=== PATIENT | male | born 1970 | race Caucasian/White ===

== ENCOUNTER 2018-03-31 13:23 | Inpatient (IN) | payer OTHER ==
[2018-03-31 13:39] VITALS: BMI 29.8
--- NOTE | 2018-03-31 17:23 | HP ---
CIWA Score - Admission Criteria OASAS Guidelines: Admission for Medically Managed Detox: Requires at least one of the followin. CIWA greater than 12 2. Seizures within the past 24 hours 3. Delirium tremens within the past 24 hours 4. Hallucinations within the past 24 hours 5. Acute intervention needed for co occurring medical disorder 6. Acute intervention needed for co occurring psychiatric disorder 7. Severe withdrawal that cannot be handled at a lower level of care (continued vomiting, continued diarrhea, abnormal vital signs) requiring intravenous medication and/or fluids 8. Admission ROS S - HPI Chief Complaint: SEEKING INPATIENT PRISON SERVICES FOR CONTINUATION OF TXMENT Allergies/Adverse Reactions: Allergies Allergy/AdvReac Type Severity Reaction Status Date / Time No Known Allergies Allergy Verified 03/31/18 15:06 History of Present Illness: 47 Y.O. MALE WITH LONG HX/O OPIOID, SAMUEL, AND BENZO DEPENDENCE HER FOR REHAB. CLIENT IS KNOWN TO THIS PROGRAM. LAST HERE 10/2017. HE IS REFERRED TODAY BY [facility] AFTER COMPLETING DETOX FOR BENZO DEPENDENCE. DENIES ANY SIGNIFICANT CLEAN TIME IN THE PAST YEAR. HE IS CURRENTLY ON MMTP 100 MG DAILY. LDM TODAY WHILE AT [facility]. HIS HOME PROGRAM IS [facility]. ALL VERIFIED BY MAZIN LASSITER. DENIES HX/O SEIZURES, SI/ HI, BLACKOUTS. DOES REPORT PAST HX/O AVH BUT PRESENTLY DENIES. HE IS CURRENLTY HOMELESS. PMHX- HIV PSYCH- INSOMNIA, DEPRESSION Exam Limitations: Language Barrier ([place] SPEAKING BUT CAN MAKE NEEDS KNOWN IN [facility].) - Ebola screening Have you traveled outside of the country in the last 21 days: No Have you had contact with anyone from an Ebola affected area: No Have you been sick,other than usual withdrawal symptoms: No Do you have a fever: No - Review of Systems Constitutional: No Symptoms Reported EENT: reports: No Symptoms Reported Respiratory: reports: No Symptoms reported Cardiac: reports: No Symptoms Reported GI: reports: No Symptoms Reported : reports: No Symptoms Reported Musculoskeletal: reports: No Symptoms Reported Integumentary: reports: No Symptoms Reported Neuro: reports: No Symptoms reported Endocrine: reports: No Symptoms Reported Hematology: reports: No Symptoms Reported Psychiatric: reports: Depressed Other Systems: Reviewed and Negative Patient History - Patient Medical History Hx Anemia: No Hx Asthma: No Hx Chronic Obstructive Pulmonary Disease (COPD): No Hx Cancer: No Hx Cardiac Disorders: No Hx Congestive Heart Failure: No Hx Hypertension: No Hx Hypercholesterolemia: No Hx Pacemaker: No HX Cerebrovascular Accident: No Hx Seizures: No Hx Dementia: No Hx Diabetes: No Hx Gastrointestinal Disorders: No Hx Liver Disease: No Hx Genitourinary Disorders: No Hx Sexually Transmitted Disorders: No Hx Renal Disease (ESRD): No Hx Thyroid Disease: No Hx Human Immunodeficiency Virus (HIV): Yes Hx Hepatitis C: Yes (COMLETED FULL COURSE OF TREATMENT: 2016. CURRENTLY UNDETECTABLE VL.) Hx Depression: Yes Hx Suicide Attempt: No Hx Bipolar Disorder: No Hx Schizophrenia: No Other Medical History: DENIES - Patient Surgical History Past Surgical History: No Hx Neurologic Surgery: No Hx Cataract Extraction: No Hx Cardiac Surgery: No Hx Lung Surgery: No Hx Breast Surgery: No Hx Breast Biopsy: No Hx Abdominal Surgery: No Hx Appendectomy: No Hx Cholecystectomy: No Hx Genitourinary Surgery: No Hx Section: No Hx Orthopedic Surgery: No Other Surgical History: DENEIS. Anesthesia Reaction: No - PPD History Previous Implant?: Yes Documented Results: Negative w/proof Implanted On Prior [facility] Admission?: Yes Date: 11/12/17 Results: 0 mm PPD to be Administered?: No - Smoking Cessation Smoking history: Current every day smoker Have you smoked in the past 12 months: Yes Aproximately how many cigarettes per day: 20 Cigars Per Day: 0 Hx Chewing Tobacco Use: No Initiated information on smoking cessation: Yes 'Breaking Loose' booklet given: 03/31/18 - Substance & Tx. History Hx Alcohol Use: No Hx Substance Use: Yes Substance Use Type: Cocaine, Heroin, Prescribed (MMTP 100 MG), Tranquilizers ( XANAX) Hx Substance Use Treatment: Yes ([facility]) - Substances Abused Cocaine Route: Injection Frequency: Daily Amount used: 4 gms. Age of first use: 12 Date of Last Use: 03/27/18 Xanax Route: Oral Frequency: Daily Amount used: 4-8 tabs. (2 mg.) Age of first use: 43 Date of Last Use: 03/27/18 Family Disease History - Family Disease History Family Disease History: Other: Father (Used ETOH in past, Not currently.), Brother (Drugs.) Admission Physical Exam BHS - Vital Signs Vital Signs: Vital Signs - 24 hr 11/16/18 13:37 Temperature 96.9 F L Pulse Rate 62 Respiratory 18 Rate Blood Pressure 150/87 - Physical General Appearance: Yes: No Apparent Distress, Appropriately Dressed HEENTM: Yes: EOMI, Normocephalic, Normal Voice, JUNIOR, Pharynx Normal, Other ( PARTIAL DENTURES) Respiratory: Yes: Chest Non-Tender, Lungs Clear, Normal Breath Sounds, No Respiratory Distress, No Accessory Muscle Use Neck: Yes: No masses,lesions,Nodules, Supple, Trachea in good position Breast: Yes: Breast Exam Deferred Cardiology: Yes: Regular Rhythm, Regular Rate, S1, S2 Abdominal: Yes: Normal Bowel Sounds, Non Tender, Soft Genitourinary: Yes: Within Normal Limits (NO C/O) Back: Yes: Normal Inspection Musculoskeletal: Yes: full range of Motion, Gait Steady Extremities: Yes: Normal Range of Motion, Non-Tender Neurological: Yes: Fully Oriented, Alert, Motor Strength 5/5 Integumentary: Yes: Dry, Warm, Track Wilkinson Lymphatic: Yes: Within Normal Limits - Diagnostic (1) HIV (human immunodeficiency virus infection) Current Visit: Yes Status: Chronic (2) Sedative, hypnotic or anxiolytic dependence, uncomplicated Current Visit: Yes Status: Acute (3) Uses Qatari as primary spoken language Current Visit: Yes Status: Chronic (4) Opioid dependence on agonist therapy Current Visit: Yes Status: Chronic (5) Cocaine dependence, uncomplicated Current Visit: Yes Status: Chronic (6) Hepatitis C Current Visit: Yes Status: Resolved Qualifiers: Viral hepatitis chronicity: chronic Hepatic coma status: without hepatic coma Qualified Code(s): B18.2 - Chronic viral hepatitis C Comment: Completed Treatment: 2016. (7) Methadone maintenance therapy patient Current Visit: Yes Status: Chronic (8) Substance induced mood disorder Current Visit: Yes Status: Chronic (9) Homeless Current Visit: Yes Status: Chronic Cleared for Admission [facility] - Detox or Rehab Detox Regimen/Protocol: Not Applicable Claeared for Rehab Admission: Yes S Breath Alcohol Content Breath Alcohol Content: 0 Urine Drug Screen - Results Drug Screen Negative: No Urine Drug Screen Results: BZO-Benzodiazepines, MTD-Methadone Inpatient Rehab Admission - Initial Determination Are CD services needed?: Yes Free of communicable disease: Yes Not in need of hospitalization: Yes - Rehab Admission Criteria Previous failed treatment: Yes Poor recovery environment: Yes Comorbidities: Yes Lacks judgement: No Patient is meeting Inpatient Rehab admission criteria:: Yes
[2018-03-31] MEDS ORDERED: MAGNESIUM HYDROX 2400MG/30ML ORAL SUSPENSION 30 ML CUP PO PRN (17:34)
[2018-03-31] MEDS ORDERED: NICOTINE POLACRILEX 2 MG GUM BC PRN (17:34)
[2018-03-31] MEDS ORDERED: MAGNESIUM CITRATE 300 ML BOTTLE PO PRN (17:34)
[2018-03-31] MEDS ORDERED: MENTHOL/PHENOL 1 EACH UD MM PRN (17:34)
[2018-03-31] MEDS ORDERED: MAG HYDROX/AL HYDROX/SIMETH 30 ML UNIT-DOSE CUP PO PRN (17:34)
[2018-03-31] MEDS ORDERED: P-EPHED 60MG/TRIPROLIDI 2.5MG TABLET PO PRN (17:34)
[2018-03-31] MEDS ORDERED: hydrOXYzine PAMOATE 50 MG CAPSULE (FP) PO PRN (17:34)
[2018-03-31] MEDS ORDERED: IBUPROFEN 400 MG TABLET (FP) PO PRN (17:34)
[2018-03-31] MEDS ORDERED: guaiFENesin/D-METHORPHAN HB 10 ML UNIT-DOSE CUPS PO PRN (17:34)
[2018-03-31] MEDS ORDERED: LOPERAMIDE HCL 2 MG CAPSULE PO PRN (17:34)
[2018-03-31] MEDS ORDERED: ACETAMINOPHEN 325 MG TABLET (FP) PO PRN (17:34)
[2018-03-31] MEDS ORDERED: THIAMINE HCL 100 MG TABLET (FP) PO SCH (22:00)
[2018-03-31] MEDS ORDERED: MELATONIN 5 MG TABLETS PO PRN (22:00)
[2018-04-01 01:28] LABS: URINE APPEARANCE CLEAR; URINE BILIRUBIN NEGATIVE (<2.0 mg/dL); URINE COLOR LTYELLOW; URINE GLUCOSE (UA) NEGATIVE (NEGATIVE); URINE KETONE NEGATIVE (NEGATIVE); URINE LEUK ESTERASE 3+ (NEGATIVE); URINE NITRITE NEGATIVE (NEGATIVE); URINE PROTEIN NEGATIVE (NEGATIVE); URINE UROBILINOGEN NEGATIVE mg/dL (0.2-1.0)
[2018-04-01 01:39] LABS: EPI CELLS RARE /HPF (FEW); URINE BACTERIA RARE /hpf (NONE SEEN); URINE MUCUS RARE
[2018-04-01] MEDS ORDERED: METHADONE HCL 40 MG DISPERSABLE TABLET ONE (05:38)
[2018-04-01] MEDS ORDERED: METHADONE HCL 10 MG TABLET ONE (05:38)
[2018-04-01] MEDS ORDERED: METHADONE HCL 10 MG TABLET PO SCH (06:00)
[2018-04-01] MEDS ORDERED: METHADONE 80 MG, METHADONE 20 MG PO SCH (06:00)
[2018-04-01 07:05] VITALS: BP 131/72; PULSE 47; TEMP 98.1
[2018-04-01] MEDS ORDERED: NICOTINE 21 MG/24 HOURS TOPICAL PATCH TD SCH (10:00)
[2018-04-01] MEDS ORDERED: PRENATAL VITAMINS W/ FOLIC ACID TABLET (FP) PO SCH (10:00)
[2018-04-01] MEDS ORDERED: EMTRICITAB/RILPIVIRI/TENOF ALA (ODEFSEY) TABLET PO SCH (10:00)
[2018-04-01] MEDS ORDERED: FLU VACCINE QUAD 60 MCG/0.5 ML (MDV 18-19) IM ONE (12:00)
--- NOTE | 2018-04-03 23:55 | EKG ---
Test Reason : Blood Pressure : / mmHG Vent. Rate : 058 BPM Atrial Rate : 058 BPM P-R Int : 152 ms QRS Dur : 088 ms QT Int : 414 ms P-R-T Axes : 045 -04 035 degrees QTc Int : 406 ms SINUS BRADYCARDIA VOLTAGE CRITERIA FOR LEFT VENTRICULAR HYPERTROPHY NONSPECIFIC T WAVE ABNORMALITY ABNORMAL ECG WHEN COMPARED WITH ECG OF 10-NOV-2017 15:11, NO SIGNIFICANT CHANGE WAS FOUND Confirmed by KHALIF GOTTLIEB, LANI ([id number]) on 04/03/2018 11:55:17 PM Referred By: Confirmed By:LANI CUADRA MD
== END 2018-04-01 08:39 | disposition left against medical advice (07) | DRG 770 ==
LOC: YASAS 13:23 → Y3W 18:04
PROVIDERS: ADMIT Psychiatry & Neurology Psychiatry; ATTEND Psychiatry & Neurology Psychiatry
PROC: HZ42ZZZ Group Counseling for Substance Abuse Treatment, Cognitive-Behavioral (ICD-10-PCS; principal; 2018-03-31)
DX: F13.20 Sedative, hypnotic or anxiolytic dependence, uncomplicated (principal); F14.20 Cocaine dependence, uncomplicated; F11.20 Opioid dependence, uncomplicated; F17.210 Nicotine dependence, cigarettes, uncomplicated; F19.24 Other psychoactive substance dependence with psychoactive substance-induced mood disorder; F32.9 Major depressive disorder, single episode, unspecified; G47.00 Insomnia, unspecified; B18.2 Chronic viral hepatitis C; Z59.0 Homelessness
CPT/HCPCS: 81003; 81015; 93005; 93010

== ENCOUNTER 2018-08-17 12:27 | Inpatient (IN) | payer OTHER ==
--- NOTE | 2018-08-17 15:47 | HP ---
CIWA Score - Admission Criteria OASAS Guidelines: Admission for Medically Managed Detox: Requires at least one of the followin. CIWA greater than 12 2. Seizures within the past 24 hours 3. Delirium tremens within the past 24 hours 4. Hallucinations within the past 24 hours 5. Acute intervention needed for co occurring medical disorder 6. Acute intervention needed for co occurring psychiatric disorder 7. Severe withdrawal that cannot be handled at a lower level of care (continued vomiting, continued diarrhea, abnormal vital signs) requiring intravenous medication and/or fluids 8. Admission ROS S - HPI Chief Complaint: i am here for rehab from cocaine dependence,xanax,heroin abused,mmtp 100 mgs/day Allergies/Adverse Reactions: Allergies Allergy/AdvReac Type Severity Reaction Status Date / Time No Known Allergies Allergy Verified 08/17/18 14:47 History of Present Illness: this 48 years old male with cocaine dependence,xanax and heroin abused for rehab , multiple admissions in rehab last 03/31/18 to 04/01/18 not completed nicotine dependence 1 pack/day,will give nicotine patch and gum bipolar disorder longest sobriety 4 years hiv since 2005 no medication Exam Limitations: No Limitations - Ebola screening Have you traveled outside of the country in the last 21 days: No Have you had contact with anyone from an Ebola affected area: No Do you have a fever: No - Review of Systems Constitutional: No Symptoms Reported EENT: reports: No Symptoms Reported Respiratory: reports: No Symptoms reported Cardiac: reports: No Symptoms Reported GI: reports: No Symptoms Reported : reports: No Symptoms Reported Musculoskeletal: reports: No Symptoms Reported Integumentary: reports: No Symptoms Reported Neuro: reports: No Symptoms reported Endocrine: reports: No Symptoms Reported Hematology: reports: No Symptoms Reported Psychiatric: reports: No Sypmtoms Reported, Judgement Intact, Mood/Affect Appropiate, Orientated x3, other (bipolar disorder) Other Systems: Reviewed and Negative Patient History - Patient Medical History Hx Anemia: No Hx Asthma: No Hx Chronic Obstructive Pulmonary Disease (COPD): No Hx Cancer: No Hx Cardiac Disorders: No Hx Congestive Heart Failure: No Hx Hypertension: No Hx Hypercholesterolemia: No Hx Pacemaker: No HX Cerebrovascular Accident: No Hx Seizures: No Hx Dementia: No Hx Diabetes: No Hx Gastrointestinal Disorders: No Hx Liver Disease: No Hx Genitourinary Disorders: No Hx Sexually Transmitted Disorders: No Hx Renal Disease (ESRD): No Hx Thyroid Disease: No Hx Human Immunodeficiency Virus (HIV): Yes Hx Hepatitis C: Yes (COMLETED FULL COURSE OF TREATMENT: 2016. CURRENTLY UNDETECTABLE VL.) Hx Depression: Yes Hx Suicide Attempt: No Hx Bipolar Disorder: No Hx Schizophrenia: No Other Medical History: no suicidal,no homicidal - Patient Surgical History Past Surgical History: No Hx Neurologic Surgery: No Hx Cataract Extraction: No Hx Cardiac Surgery: No Hx Lung Surgery: No Hx Breast Surgery: No Hx Breast Biopsy: No Hx Abdominal Surgery: No Hx Appendectomy: No Hx Cholecystectomy: No Hx Genitourinary Surgery: No Hx Section: No Hx Orthopedic Surgery: No Other Surgical History: DENEIS. Anesthesia Reaction: No - PPD History Previous Implant?: Yes Documented Results: Negative w/proof Implanted On Prior [facility] Admission?: Yes Date: 11/12/17 Results: 0 mm PPD to be Administered?: No - Smoking Cessation Smoking history: Current every day smoker Have you smoked in the past 12 months: Yes Aproximately how many cigarettes per day: 20 Cigars Per Day: 0 Hx Chewing Tobacco Use: No Initiated information on smoking cessation: Yes 'Breaking Loose' booklet given: 08/17/18 - Substance & Tx. History Hx Alcohol Use: No Hx Substance Use: Yes Substance Use Type: Cocaine, Heroin, Tranquilizers Hx Substance Use Treatment: Yes ([facility] rehab 03/21/18 to 03/22/18 not completed) - Substances abused Cocaine Substance route: Injection Frequency: Daily Amount used: 150$ Age of first use: 16 Date of last use: 08/16/18 Alprazolam (Xanax) Substance route: Oral Frequency: 1-3 times last 30 days Amount used: 2 mgs Age of first use: 25 Date of last use: 08/16/18 Heroin Substance route: Injection Frequency: 1-2 times per week Amount used: 3 to 4 bags Age of first use: 18 Date of last use: 08/14/18 Family Disease History - Family Disease History Family Disease History: Other: Father (Used ETOH in past, Not currently.), Brother (Drugs.) Admission Physical Exam BHS - Vital Signs Vital Signs: Vital Signs - 24 hr 08/17/18 14:50 Temperature 98.1 F Pulse Rate 58 L Respiratory 18 Rate Blood Pressure 124/69 - Physical General Appearance: Yes: Within Normal Limits HEENTM: Yes: Normal ENT Inspection, JUNIOR, Pharynx Normal Respiratory: Yes: Lungs Clear, Normal Breath Sounds, No Respiratory Distress Neck: Yes: Within Normal Limits, Supple, Trachea in good position Breast: Yes: Within Normal Limits Cardiology: Yes: Within Normal Limits, Regular Rhythm, Regular Rate, S1, S2 Abdominal: Yes: Within Normal Limits, Normal Bowel Sounds, Non Tender, Flat, Soft Genitourinary: Yes: Within Normal Limits Back: Yes: Within Normal Limits Musculoskeletal: Yes: Within Normal Limits Extremities: Yes: Within Normal Limits Neurological: Yes: stable helper II-XII NML intact, Fully Oriented, Alert, Motor Strength 5/5 Integumentary: Yes: Within Normal Limits, Track Wilkinson Lymphatic: Yes: Within Normal Limits - Diagnostic (1) Cocaine dependence Current Visit: No Status: Acute (2) Sedative, hypnotic or anxiolytic dependence, uncomplicated Current Visit: No Status: Acute (3) HIV (human immunodeficiency virus infection) Current Visit: No Status: Chronic (4) Methadone maintenance therapy patient Current Visit: No Status: Chronic (5) Nicotine dependence Current Visit: No Status: Chronic Qualifiers: Nicotine product type: cigarettes Substance use status: uncomplicated Qualified Code(s): F17.210 - Nicotine dependence, cigarettes, uncomplicated (6) Opioid dependence on agonist therapy Current Visit: No Status: Chronic (7) Hepatitis C Current Visit: No Status: Resolved Qualifiers: Viral hepatitis chronicity: chronic Hepatic coma status: without hepatic coma Qualified Code(s): B18.2 - Chronic viral hepatitis C Comment: Completed Treatment: 2015. Cleared for Admission B[facility] - Detox or Rehab Claeared for Rehab Admission: Yes Inpatient Rehab Admission - Rehab Decision to Admit Inpatient rehab admission?: Yes - Initial Determination Are CD services needed?: Yes Free of communicable disease: Yes Not in need of hospitalization: Yes - Rehab Admission Criteria Previous failed treatment: Yes Poor recovery environment: Yes Comorbidities: Yes Lacks judgement: No Patient is meeting Inpatient Rehab admission criteria:: Yes
[2018-08-17] MEDS ORDERED: ACETAMINOPHEN 325 MG TABLET (FP) PO PRN (15:57)
[2018-08-17] MEDS ORDERED: guaiFENesin 200 MG/10 ML 10 ML UNIT-DOSE CUPS PO PRN (15:57)
[2018-08-17] MEDS ORDERED: hydrOXYzine PAMOATE 50 MG CAPSULE (FP) PO PRN (15:57)
[2018-08-17] MEDS ORDERED: P-EPHED 60MG/TRIPROLIDI 2.5MG TABLET PO PRN (15:57)
[2018-08-17] MEDS ORDERED: MAGNESIUM CITRATE 300 ML BOTTLE PO PRN (15:57)
[2018-08-17] MEDS ORDERED: LOPERAMIDE HCL 2 MG CAPSULE PO PRN (15:57)
[2018-08-17] MEDS ORDERED: IBUPROFEN 400 MG TABLET (FP) PO PRN (15:57)
[2018-08-17] MEDS ORDERED: MAGNESIUM HYDROX 2400MG/30ML ORAL SUSPENSION 30 ML CUP PO PRN (15:57)
[2018-08-17] MEDS ORDERED: NICOTINE POLACRILEX 2 MG GUM BC PRN (15:57)
[2018-08-17] MEDS ORDERED: MENTHOL/PHENOL 1 EACH UD MM PRN (15:57)
[2018-08-17] MEDS ORDERED: SIMETHICONE 80 MG TAB.CHEW (FP) PO PRN (15:59)
[2018-08-17] MEDS: NICOTINE 21 MG/24 HOURS TOPICAL PATCH TD SCH (19:09)
[2018-08-17] MEDS: THIAMINE HCL 100 MG TABLET (FP) PO SCH (21:55)
[2018-08-17 23:25] LABS: EPI CELLS 1.9 /HPF (0-5); URINE APPEARANCE CLOUDY; URINE BACTERIA 40.3 /hpf (NEGATIVE); URINE BILIRUBIN NEGATIVE (NEGATIVE); URINE CASTS 2 /hpf (0-8); URINE COLOR YELLOW; URINE GLUCOSE (UA) NEGATIVE (NEGATIVE); URINE KETONE TRACE (NEGATIVE); URINE LEUK ESTERASE 2+ (NEGATIVE); URINE NITRITE NEGATIVE (NEGATIVE); URINE PROTEIN NEGATIVE (NEGATIVE); URINE RBC 3 /hpf (0-4); URINE UROBILINOGEN 0.2 mg/dL (0.2-1.0); URINE WBC 32 /hpf (0-5)
[2018-08-18] MEDS ORDERED: METHADONE HCL 40 MG DISPERSABLE TABLET ONE (05:55)
[2018-08-18] MEDS ORDERED: METHADONE HCL 10 MG TABLET ONE (05:55)
[2018-08-18] MEDS ORDERED: METHADONE HCL 10 MG TABLET PO SCH (06:00)
[2018-08-18] MEDS: METHADONE 80 MG, METHADONE 20 MG PO SCH (06:13)
[2018-08-18] MEDS: LURASIDONE HCL 20 MG TABLET PO SCH (10:10)
[2018-08-18] MEDS: SERTRALINE HCL 50 MG TABLET (FP) PO SCH (10:10)
[2018-08-18] MEDS: PRENATAL VITAMINS W/ FOLIC ACID TABLET (FP) PO SCH (10:10)
[2018-08-18] MEDS: NICOTINE 21 MG/24 HOURS TOPICAL PATCH TD SCH (10:10)
[2018-08-18 10:21] LABS: HEMATOCRIT 41.1 % (35.4-49); HEMOGLOBIN 13.2 GM/dL (11.7-16.9); MCH 28.2 pg (25.7-33.7); MCHC 32.2 g/dl (32.0-35.9); MEAN CELL VOLUME 87.7 fl (80-96); MEAN PLT VOLUME 11.5 fl (7.5-11.1); PLATELET COUNT 189 K/MM3 (134-434); RBC 4.68 M/mm3 (4.00-5.60); RDW 14.8 % (11.9-15.9); WHITE BLOOD COUNT 7.1 K/mm3 (4.0-10.0)
[2018-08-18 10:28] LABS: ALBUMIN 3.6 g/dl (3.4-5.0); ALK PHOS 86 U/L (45-117); ANION GAP 3 MMOL/L (8-16); BILIRUBIN,TOTAL 0.3 mg/dL (0.2-1); BLOOD UREA NITROGEN 12 mg/dL (7-18); CALCIUM 8.6 mg/dL (8.5-10.1); CHLORIDE 105 mmol/L (98-107); CO2 30 mmol/L (21-32); GLUCOSE,RANDOM 151 mg/dL (74-106); POTASSIUM 3.9 mmol/L (3.5-5.1); SGOT/AST 46 U/L (15-37); SGPT/ALT 45 U/L (13-61); SODIUM 138 mmol/L (136-145); TOT PROT 8.1 g/dl (6.4-8.2)
[2018-08-18] MEDS ORDERED: FLU VACCINE QUAD 60 MCG/0.5 ML (MDV 18-19) IM ONE (12:00)
[2018-08-18] MEDS: THIAMINE HCL 100 MG TABLET (FP) PO SCH (22:10)
[2018-08-18] MEDS: MAG HYDROX/AL HYDROX/SIMETH 30 ML UNIT-DOSE CUP PO PRN (22:10)
[2018-08-18] MEDS: MELATONIN 5 MG TABLETS PO PRN (22:10)
[2018-08-19] MEDS ORDERED: METHADONE HCL 10 MG TABLET ONE (04:40)
[2018-08-19] MEDS ORDERED: METHADONE HCL 40 MG DISPERSABLE TABLET ONE (04:40)
[2018-08-19] MEDS: METHADONE 80 MG, METHADONE 20 MG PO SCH (06:35)
[2018-08-19] MEDS: PRENATAL VITAMINS W/ FOLIC ACID TABLET (FP) PO SCH (10:17)
[2018-08-19] MEDS: SERTRALINE HCL 50 MG TABLET (FP) PO SCH (10:17)
[2018-08-19] MEDS: LURASIDONE HCL 20 MG TABLET PO SCH (10:17)
[2018-08-19] MEDS: NICOTINE 21 MG/24 HOURS TOPICAL PATCH TD SCH (10:18)
--- NOTE | 2018-08-19 11:47 | CONSULT ---
[facility] Psychiatric Consult - Data Date of interview: 08/19/18 Admission source: [facility] Identifying data: Direct admission to [address] for this 48 y/o male self-referred for rehabilitative care addressing HENRY (substance use disorder : heroin, cocaine, xanax) co-morbid with bipolar disorder. Examined at [address] [place] [address]. Patient is single, a father of three, domiciled, unemployed and supported on [employer] funds. Substance Abuse History: Confirmed by patient in this interview. Details in current [facility] report as follows : Smoking history: Current every day smoker. Have you smoked in the past 12 months: Yes. Aproximately how many cigarettes per day: 20. Cigars Per Day: 0. Hx Chewing Tobacco Use: No. Initiated information on smoking cessation: Yes. 'Breaking Loose' booklet given: . - Substance & Tx. History. Hx Alcohol Use: No. Hx Substance Use: Yes. Substance Use Type: Cocaine, Heroin, Tranquilizers. Hx Substance Use Treatment : Yes ([facility] rehab 03/21/18 to 03/22/18 not completed). - Substances abused. Cocaine. Substance route: Injection. Frequency: Daily. Amount used: 150$. Age of first use: 16. Date of last use: 08/16/18. Alprazolam (Xanax). Substance route: Oral. Frequency: 1-3 times last 30 days. Amount used: 2 mgs. Age of first use: 25. Date of last use: 08/16/18. Heroin. Substance route: Injection. Frequency: 1-2 times per week. Amount used: 3 to 4 bags. Age of first use: 18. Date of last use: 08/14/18 Medical History: Remarkable for hepatitis C and HIV infection since 2005 (on antiretroviral drugs). Psychiatric History: Patient denies history of psychiatric hospitalizations. First contact with Psychiatry : 2006 (OPD care at [facility] substance abuse treatment program). Mr Huitron indicates that he has been diagnosed with Bipolar Disorder. Medicated with sertraline 100 mg/day + latuda 20 mg/day + trazodone 100 mg/hs. Sees a psychiatrist at [facility] clinic ([place]) for medication management. Patient is also on methadone maintenance (100 mg/day) at the [facility] MMT program ([address] [place] [address]). No reported history of suicide attempts. Physical/Sexual Abuse/Trauma History: Patient denies. Additional Comment: Toxicology not available. Mental Status Exam - Mental Status Exam Alert and Oriented to: Time, Place, Person Cognitive Function: Good Patient Appearance: Well Groomed (muscular frame, multiple tattoos on both arms + forerarms) Mood: Withdrawn Affect: Appropriate, Normal Range Patient Behavior: Fatigued, Appropriate, Cooperative Speech Pattern: Clear (botswanan-fluent ) Voice Loudness: Normal Thought Process: Intact, Goal Oriented Thought Disorder: Not Present Hallucinations: Denies Suicidal Ideation: Denies Homicidal Ideation: Denies Insight/Judgement: Fair Sleep: Poorly, Difficulty falling asleep Appetite: Good Muscle strength/Tone: Normal Gait/Station: Normal Psychiatric Findings - Problem List ([place] 1, 2,3) (1) Opioid dependence on agonist therapy Current Visit: Yes Status: Chronic (2) Cocaine dependence Current Visit: Yes Status: Chronic (3) Sedative, hypnotic or anxiolytic dependence, uncomplicated Current Visit: Yes Status: Chronic (4) Nicotine dependence Current Visit: Yes Status: Chronic Qualifiers: Nicotine product type: cigarettes Substance use status: uncomplicated Qualified Code(s): F17.210 - Nicotine dependence, cigarettes, uncomplicated (5) Substance induced mood disorder Current Visit: Yes Status: Chronic (6) Bipolar disorder Current Visit: Yes Status: Chronic Comment: As per history + self-report. In active treatment. (7) Insomnia Current Visit: Yes Status: Chronic - Initial Treatment Plan Initial Treatment Plan: Psychoeducation. Sleep hygiene. Support. NA meetings. Groups. Motivational sessions aimed at enhancing desire for lifestyle changes. Medications resumed : latuda 20 mg po daily + trazodone 50 mg po hs + zoloft 100 mg po daily. Side effects/benefits discussed with the patient. Mr Huitron is made aware of the potential for suicidal ideation, sexual dysfunction, priapism and sedation. Consent (verbal) granted to MD. [place]
[2018-08-19] MEDS: MELATONIN 5 MG TABLETS PO PRN (21:15)
[2018-08-19] MEDS: THIAMINE HCL 100 MG TABLET (FP) PO SCH (21:15)
[2018-08-19] MEDS: traZODone HCL 50 MG TABLET (FP) PO SCH (21:16)
[2018-08-20] MEDS ORDERED: METHADONE HCL 10 MG TABLET ONE (06:12)
[2018-08-20] MEDS: METHADONE 80 MG, METHADONE 20 MG PO SCH (06:12)
[2018-08-20] MEDS ORDERED: METHADONE HCL 40 MG DISPERSABLE TABLET ONE (06:12)
[2018-08-20] MEDS: PRENATAL VITAMINS W/ FOLIC ACID TABLET (FP) PO SCH (10:12)
[2018-08-20] MEDS: NICOTINE 21 MG/24 HOURS TOPICAL PATCH TD SCH (10:12)
[2018-08-20] MEDS: SERTRALINE HCL 50 MG TABLET (FP) PO SCH (10:12)
[2018-08-20] MEDS: LURASIDONE HCL 20 MG TABLET PO SCH (10:12)
[2018-08-20] MEDS: THIAMINE HCL 100 MG TABLET (FP) PO SCH (21:08)
[2018-08-20] MEDS: traZODone HCL 50 MG TABLET (FP) PO SCH (21:08)
[2018-08-21] MEDS ORDERED: METHADONE HCL 40 MG DISPERSABLE TABLET ONE (03:55)
[2018-08-21] MEDS ORDERED: METHADONE HCL 10 MG TABLET ONE (03:55)
[2018-08-21] MEDS: METHADONE 80 MG, METHADONE 20 MG PO SCH (06:15)
[2018-08-21] MEDS: LURASIDONE HCL 20 MG TABLET PO SCH (10:37)
[2018-08-21] MEDS: PRENATAL VITAMINS W/ FOLIC ACID TABLET (FP) PO SCH (10:37)
[2018-08-21] MEDS: NICOTINE 21 MG/24 HOURS TOPICAL PATCH TD SCH (10:37)
[2018-08-21] MEDS: SERTRALINE HCL 50 MG TABLET (FP) PO SCH (10:37)
--- NOTE | 2018-08-21 14:50 | PN ---
[facility] Progress Note Note: PT REQUESTING MEDICATION REVIEW AND TO RESTART ANTIRETROVIRAL MED. PT REPORTS HE TAKES ODEFSEY 1 TAB DAILY BUT DID NOT BRING IT. REPORTS IT WAS STOLEN AT [facility] 2 WEEKENDS AGO BEFORE COMING HERE. PT REPORTS HER PCP IS PRISCILLA FARLEY. PT BECAME AGITATED WHLE THIS SUPERVISOR COMMUNICATIONS AND SIGNALS AND THE HOSPITAL PHARMACIST TRY TO VERIFY COMPLIANCE TO HIS MEDICATION AND HE WALKED AWAY STATING HE WILL GO BACK TO HIS PCP AND DID NOT WANT TO BE ASKED ALL THOSE VERIFICATION QUESTIONS. PT IS ALERT O X 3. Home Medications Medication Instructions Recorded Lurasidone HCl [Latuda -] 20 mg PO DAILY #30 tablet 11/23/17 Sertraline HCl [Zoloft] 100 mg PO DAILY #30 tablet 11/23/17 Emtricitab/Rilpiviri/Tenof Ala 1 each PO DAILY 03/31/18 [Odefsey Tablet] Zolpidem Tartrate [Ambien] 10 mg PO HS 08/17/18 Vital Signs - 24 hr 08/21/18 08/21/18 08/21/18 00:30 03:30 06:42 Temperature 98.0 F Pulse Rate 52 L Respiratory 18 18 18 Rate Blood Pressure 132/59 L Laboratory Tests 08/17/18 08/18/18 08/18/18 18:50 08:05 08:05 WBC 7.1 RBC 4.68 Hgb 13.2 Hct 41.1 MCV 87.7 MCH 28.2 MCHC 32.2 RDW 14.8 Plt Count 189 MPV 11.5 H Sodium 138 Potassium 3.9 Chloride 105 Carbon Dioxide 30 Anion Gap 3 L BUN 12 Creatinine 1.0 Creat Clearance w eGFR 79.75 POC Glucometer Random Glucose 151 H Calcium 8.6 Total Bilirubin 0.3 AST 46 H ALT 45 Alkaline Phosphatase 86 Total Protein 8.1 Albumin 3.6 Urine Color Yellow Urine Appearance Cloudy Urine pH 5.0 Ur Specific Daniels 1.019 Urine Protein Negative Urine Glucose (UA) Negative Urine Ketones Trace H Urine Blood Negative Urine Nitrite Negative Urine Bilirubin Negative Urine Urobilinogen 0.2 Ur Leukocyte Esterase 2+ H Urine WBC (Auto) 32 Urine RBC (Auto) 3 Urine Casts (Auto) 2 U Epithel Cells (Auto) 1.9 Urine Bacteria (Auto) 40.3 RPR Titer 08/18/18 08/19/18 08/20/18 08:05 06:34 06:15 WBC RBC Hgb Hct MCV MCH MCHC RDW Plt Count MPV Sodium Potassium Chloride Carbon Dioxide Anion Gap BUN Creatinine Creat Clearance w eGFR POC Glucometer 92 88 Random Glucose Calcium Total Bilirubin AST ALT Alkaline Phosphatase Total Protein Albumin Urine Color Urine Appearance Urine pH Ur Specific Daniels Urine Protein Urine Glucose (UA) Urine Ketones Urine Blood Urine Nitrite Urine Bilirubin Urine Urobilinogen Ur Leukocyte Esterase Urine WBC (Auto) Urine RBC (Auto) Urine Casts (Auto) U Epithel Cells (Auto) Urine Bacteria (Auto) RPR Titer Nonreactive NAD PLAN;CONTINUE REHAB TX.
[2018-08-21] MEDS: traZODone HCL 50 MG TABLET (FP) PO SCH (21:34)
[2018-08-21] MEDS: MELATONIN 5 MG TABLETS PO PRN (21:34)
[2018-08-21] MEDS: THIAMINE HCL 100 MG TABLET (FP) PO SCH (21:34)
[2018-08-22] MEDS ORDERED: METHADONE HCL 40 MG DISPERSABLE TABLET ONE (03:58)
[2018-08-22] MEDS ORDERED: METHADONE HCL 10 MG TABLET ONE (03:58)
[2018-08-22] MEDS: METHADONE 80 MG, METHADONE 20 MG PO SCH (06:23)
[2018-08-22] MEDS: NICOTINE 21 MG/24 HOURS TOPICAL PATCH TD SCH (10:22)
[2018-08-22] MEDS: LURASIDONE HCL 20 MG TABLET PO SCH (10:22)
[2018-08-22] MEDS: PRENATAL VITAMINS W/ FOLIC ACID TABLET (FP) PO SCH (10:22)
[2018-08-22] MEDS: SERTRALINE HCL 50 MG TABLET (FP) PO SCH (10:22)
[2018-08-22] MEDS: MAG HYDROX/AL HYDROX/SIMETH 30 ML UNIT-DOSE CUP PO PRN (16:44)
[2018-08-22 20:42] LABS: EPI CELLS 1.1 /HPF (0-5/HPF); PH,URINE 6.5 (5.0-8.0); URINE APPEARANCE CLEAR; URINE BACTERIA 88.9 /hpf (NEGATIVE); URINE BILIRUBIN NEGATIVE (NEGATIVE); URINE CASTS 43 /hpf (0-8); URINE COLOR YELLOW; URINE GLUCOSE (UA) NEGATIVE (NEGATIVE); URINE KETONE TRACE (NEGATIVE); URINE LEUK ESTERASE 3+ (NEGATIVE); URINE NITRITE NEGATIVE (NEGATIVE); URINE PROTEIN NEGATIVE (NEGATIVE); URINE RBC 3 /hpf (0-4); URINE UROBILINOGEN 0.2 mg/dL (0.2-1.0); URINE WBC 47 /hpf (0-5)
[2018-08-22] MEDS: THIAMINE HCL 100 MG TABLET (FP) PO SCH (21:34)
[2018-08-22] MEDS: traZODone HCL 50 MG TABLET (FP) PO SCH (21:34)
[2018-08-22] MEDS: MELATONIN 5 MG TABLETS PO PRN (21:34)
[2018-08-23] MEDS ORDERED: METHADONE HCL 40 MG DISPERSABLE TABLET ONE (04:14)
[2018-08-23] MEDS ORDERED: METHADONE HCL 10 MG TABLET ONE (04:14)
[2018-08-23] MEDS: METHADONE 80 MG, METHADONE 20 MG PO SCH (06:02)
[2018-08-23] MEDS: PRENATAL VITAMINS W/ FOLIC ACID TABLET (FP) PO SCH (10:11)
[2018-08-23] MEDS: LURASIDONE HCL 20 MG TABLET PO SCH (10:11)
[2018-08-23] MEDS: SERTRALINE HCL 50 MG TABLET (FP) PO SCH (10:11)
[2018-08-23] MEDS: NICOTINE 21 MG/24 HOURS TOPICAL PATCH TD SCH (10:12)
[2018-08-23] MEDS: MELATONIN 5 MG TABLETS PO PRN (21:26)
[2018-08-23] MEDS: traZODone HCL 50 MG TABLET (FP) PO SCH (21:26)
[2018-08-23] MEDS: THIAMINE HCL 100 MG TABLET (FP) PO SCH (21:26)
[2018-08-24] MEDS ORDERED: METHADONE HCL 40 MG DISPERSABLE TABLET ONE (05:42)
[2018-08-24] MEDS ORDERED: METHADONE HCL 10 MG TABLET ONE (05:42)
[2018-08-24] MEDS: METHADONE 80 MG, METHADONE 20 MG PO SCH (05:55)
[2018-08-24] MEDS: NICOTINE 21 MG/24 HOURS TOPICAL PATCH TD SCH (09:44)
[2018-08-24] MEDS: SERTRALINE HCL 50 MG TABLET (FP) PO SCH (09:44)
[2018-08-24] MEDS: PRENATAL VITAMINS W/ FOLIC ACID TABLET (FP) PO SCH (09:44)
[2018-08-24] MEDS: LURASIDONE HCL 20 MG TABLET PO SCH (09:44)
[2018-08-24] MEDS: MAG HYDROX/AL HYDROX/SIMETH 30 ML UNIT-DOSE CUP PO PRN (19:34)
[2018-08-24] MEDS: THIAMINE HCL 100 MG TABLET (FP) PO SCH (21:33)
[2018-08-24] MEDS: traZODone HCL 50 MG TABLET (FP) PO SCH (21:33)
[2018-08-24] MEDS: MELATONIN 5 MG TABLETS PO PRN (21:33)
[2018-08-25] MEDS ORDERED: METHADONE HCL 10 MG TABLET ONE (05:28)
[2018-08-25] MEDS ORDERED: METHADONE HCL 40 MG DISPERSABLE TABLET ONE (05:28)
[2018-08-25] MEDS: METHADONE 80 MG, METHADONE 20 MG PO SCH (06:35)
[2018-08-25] MEDS: LURASIDONE HCL 20 MG TABLET PO SCH (10:35)
[2018-08-25] MEDS: PRENATAL VITAMINS W/ FOLIC ACID TABLET (FP) PO SCH (10:35)
[2018-08-25] MEDS: NICOTINE 21 MG/24 HOURS TOPICAL PATCH TD SCH (10:35)
[2018-08-25] MEDS: SERTRALINE HCL 50 MG TABLET (FP) PO SCH (10:35)
[2018-08-25] MEDS: MAG HYDROX/AL HYDROX/SIMETH 30 ML UNIT-DOSE CUP PO PRN ×2 (10:37→17:25)
[2018-08-25] MEDS: traZODone HCL 50 MG TABLET (FP) PO SCH (21:34)
[2018-08-25] MEDS: THIAMINE HCL 100 MG TABLET (FP) PO SCH (21:35)
[2018-08-25] MEDS: MELATONIN 5 MG TABLETS PO PRN (21:35)
[2018-08-26] MEDS: MAG HYDROX/AL HYDROX/SIMETH 30 ML UNIT-DOSE CUP PO PRN (00:42)
[2018-08-26] MEDS ORDERED: METHADONE HCL 40 MG DISPERSABLE TABLET ONE (02:30)
[2018-08-26] MEDS ORDERED: METHADONE HCL 10 MG TABLET ONE (02:30)
[2018-08-26] MEDS: METHADONE 80 MG, METHADONE 20 MG PO SCH (06:57)
[2018-08-26] MEDS: LURASIDONE HCL 20 MG TABLET PO SCH (10:03)
[2018-08-26] MEDS: SERTRALINE HCL 50 MG TABLET (FP) PO SCH (10:03)
[2018-08-26] MEDS: PRENATAL VITAMINS W/ FOLIC ACID TABLET (FP) PO SCH (10:03)
[2018-08-26] MEDS: NICOTINE 21 MG/24 HOURS TOPICAL PATCH TD SCH (10:03)
[2018-08-26] MEDS: traZODone HCL 50 MG TABLET (FP) PO SCH (21:28)
[2018-08-26] MEDS: MELATONIN 5 MG TABLETS PO PRN (21:28)
[2018-08-26] MEDS: THIAMINE HCL 100 MG TABLET (FP) PO SCH (21:28)
[2018-08-27] MEDS ORDERED: METHADONE HCL 10 MG TABLET ONE (03:28)
[2018-08-27] MEDS ORDERED: METHADONE HCL 40 MG DISPERSABLE TABLET ONE (03:28)
[2018-08-27] MEDS: METHADONE 80 MG, METHADONE 20 MG PO SCH (06:06)
[2018-08-27] MEDS: SERTRALINE HCL 50 MG TABLET (FP) PO SCH (10:28)
[2018-08-27] MEDS: PRENATAL VITAMINS W/ FOLIC ACID TABLET (FP) PO SCH (10:28)
[2018-08-27] MEDS: NICOTINE 21 MG/24 HOURS TOPICAL PATCH TD SCH (10:28)
[2018-08-27] MEDS: LURASIDONE HCL 20 MG TABLET PO SCH (10:28)
[2018-08-27] MEDS: traZODone HCL 50 MG TABLET (FP) PO SCH (21:19)
[2018-08-27] MEDS: THIAMINE HCL 100 MG TABLET (FP) PO SCH (21:19)
[2018-08-27] MEDS: MELATONIN 5 MG TABLETS PO PRN (21:19)
[2018-08-27] MEDS: MAG HYDROX/AL HYDROX/SIMETH 30 ML UNIT-DOSE CUP PO PRN (21:20)
[2018-08-28] MEDS ORDERED: METHADONE HCL 40 MG DISPERSABLE TABLET ONE (03:12)
[2018-08-28] MEDS ORDERED: METHADONE HCL 10 MG TABLET ONE (03:12)
[2018-08-28] MEDS: METHADONE 80 MG, METHADONE 20 MG PO SCH (06:14)
[2018-08-28] MEDS: PRENATAL VITAMINS W/ FOLIC ACID TABLET (FP) PO SCH (10:08)
[2018-08-28] MEDS: LURASIDONE HCL 20 MG TABLET PO SCH (10:08)
[2018-08-28] MEDS: SERTRALINE HCL 50 MG TABLET (FP) PO SCH (10:08)
[2018-08-28] MEDS: NICOTINE 21 MG/24 HOURS TOPICAL PATCH TD SCH (10:09)
[2018-08-28] MEDS: traZODone HCL 50 MG TABLET (FP) PO SCH (21:32)
[2018-08-28] MEDS: MELATONIN 5 MG TABLETS PO PRN (21:32)
[2018-08-28] MEDS: THIAMINE HCL 100 MG TABLET (FP) PO SCH (21:32)
[2018-08-29] MEDS ORDERED: METHADONE HCL 10 MG TABLET ONE (02:54)
[2018-08-29] MEDS ORDERED: METHADONE HCL 40 MG DISPERSABLE TABLET ONE (02:54)
[2018-08-29] MEDS: METHADONE 80 MG, METHADONE 20 MG PO SCH (06:06)
[2018-08-29 06:57] VITALS: BP 119/74; PULSE 57; TEMP 98.3
--- NOTE | 2018-08-29 08:36 | PN ---
[facility] Progress Note Note: PT COMPLETED REHAB AND DISCHARGED TODAY. PT IS REFERRED BACK TO HIS [facility] FOR CD AFTERCARE. REPORTS HIS PMD IS [facility] [place] [place] FOR MEDICAL MANAGEMENT. PT STATES HE WILL FOLLOW UP WITH HIS PMD FOR ID CLINIC AND RE-EVAL FOR ANTIRETROVIRAL MEDICATION( SEE PREVIOUS NOTE). PT IS ALERT O X 3. DENIES S/H/I/. Home Medications Medication Instructions Recorded Lurasidone HCl [Latuda -] 20 mg PO DAILY #30 tablet 11/23/17 Sertraline HCl [Zoloft] 100 mg PO DAILY #30 tablet 11/23/17 Emtricitab/Rilpiviri/Tenof Ala 1 each PO DAILY 03/31/18 [Odefsey Tablet] Zolpidem Tartrate [Ambien] 10 mg PO HS 08/17/18 Vital Signs 08/29/18 08/29/18 03:30 06:55 Temperature 98.3 F Pulse Rate 57 L Respiratory 18 18 Rate Blood Pressure 119/74 Laboratory Tests 08/17/18 08/18/18 08/18/18 18:50 08:05 08:05 WBC 7.1 RBC 4.68 Hgb 13.2 Hct 41.1 MCV 87.7 MCH 28.2 MCHC 32.2 RDW 14.8 Plt Count 189 MPV 11.5 H Sodium 138 Potassium 3.9 Chloride 105 Carbon Dioxide 30 Anion Gap 3 L BUN 12 Creatinine 1.0 Creat Clearance w eGFR 79.75 POC Glucometer Random Glucose 151 H Calcium 8.6 Total Bilirubin 0.3 AST 46 H ALT 45 Alkaline Phosphatase 86 Total Protein 8.1 Albumin 3.6 Urine Color Yellow Urine Appearance Cloudy Urine pH 5.0 Ur Specific [place] 1.019 Urine Protein Negative Urine Glucose (UA) Negative Urine Ketones Trace H Urine Blood Negative Urine Nitrite Negative Urine Bilirubin Negative Urine Urobilinogen 0.2 Ur Leukocyte Esterase 2+ H Urine WBC (Auto) 32 Urine RBC (Auto) 3 Urine Casts (Auto) 2 U Epithel Cells (Auto) 1.9 Urine Bacteria (Auto) 40.3 RPR Titer 08/18/18 08/19/18 08/20/18 08:05 06:34 06:15 WBC RBC Hgb Hct MCV MCH MCHC RDW Plt Count MPV Sodium Potassium Chloride Carbon Dioxide Anion Gap BUN Creatinine Creat Clearance w eGFR POC Glucometer 92 88 Random Glucose Calcium Total Bilirubin AST ALT Alkaline Phosphatase Total Protein Albumin Urine Color Urine Appearance Urine pH Ur Specific [place] Urine Protein Urine Glucose (UA) Urine Ketones Urine Blood Urine Nitrite Urine Bilirubin Urine Urobilinogen Ur Leukocyte Esterase Urine WBC (Auto) Urine RBC (Auto) Urine Casts (Auto) U Epithel Cells (Auto) Urine Bacteria (Auto) RPR Titer Nonreactive 08/22/18 13:40 WBC RBC Hgb Hct MCV MCH MCHC RDW Plt Count MPV Sodium Potassium Chloride Carbon Dioxide Anion Gap BUN Creatinine Creat Clearance w eGFR POC Glucometer Random Glucose Calcium Total Bilirubin AST ALT Alkaline Phosphatase Total Protein Albumin Urine Color Yellow Urine Appearance Clear Urine pH 6.5 D Ur Specific [place] 1.020 Urine Protein Negative Urine Glucose (UA) Negative Urine Ketones Trace H Urine Blood Negative Urine Nitrite Negative Urine Bilirubin Negative Urine Urobilinogen 0.2 Ur Leukocyte Esterase 3+ H Urine WBC (Auto) 47 Urine RBC (Auto) 3 Urine Casts (Auto) 43 U Epithel Cells (Auto) 1.1 Urine Bacteria (Auto) 88.9 RPR Titer COPY OF LAB RESULTS GIVEN TO PT FOR MEDICAL FOLLOW UP WITH PCP. NAD MEDICALLY STABLE PLAN:FOLLOW UP WITH CD AFTERCARE RECOMMENDED. FOLLOW UP FOR MEDICAL MANAGEMENT OF COMORBID CONDITIONS WITH YOUR PCP WITHIN 1 WEEK AFTER DISCHARGE.
[2018-08-29] MEDS: LURASIDONE HCL 20 MG TABLET PO SCH (10:02)
[2018-08-29] MEDS: SERTRALINE HCL 50 MG TABLET (FP) PO SCH (10:02)
[2018-08-29] MEDS: NICOTINE 21 MG/24 HOURS TOPICAL PATCH TD SCH (10:02)
[2018-08-29] MEDS: PRENATAL VITAMINS W/ FOLIC ACID TABLET (FP) PO SCH (10:02)
== END 2018-08-29 10:05 | disposition home or self-care (01) | DRG 772 ==
LOC: YASAS 12:27 → Y5N 16:39
PROVIDERS: ADMIT Neuromusculoskeletal Medicine & OMM; ATTEND Neuromusculoskeletal Medicine & OMM
PROC: HZ42ZZZ Group Counseling for Substance Abuse Treatment, Cognitive-Behavioral (ICD-10-PCS; principal; 2018-08-17)
DX: F13.20 Sedative, hypnotic or anxiolytic dependence, uncomplicated (principal); F11.20 Opioid dependence, uncomplicated; F14.20 Cocaine dependence, uncomplicated; F17.210 Nicotine dependence, cigarettes, uncomplicated; F19.24 Other psychoactive substance dependence with psychoactive substance-induced mood disorder; F31.9 Bipolar disorder, unspecified; Z21 Asymptomatic human immunodeficiency virus [HIV] infection status; B18.2 Chronic viral hepatitis C; G47.00 Insomnia, unspecified
CPT/HCPCS: 36415; 80053; 81003; 82962; 85027; 86593; 87086; 90688; G0008

== ENCOUNTER 2019-01-01 15:32 | Inpatient (IN) | payer OTHER ==
[2019-01-01 20:37] VITALS: BMI 28.7
--- NOTE | 2019-01-01 21:55 | HP ---
CIWA Score Nausea/Vomitin-No Nausea/No Vomiting Muscle Tremors: None Anxiety: 0-No Anxiety, at Ease Agitation: 0-Normal Activity Paroxysmal Sweats: No Perspiration Orientation: 0-Oriented Tacttile Disturbances: 0-None Auditory Disturbances: 0-None Visual Disturbances: 0-None Headache: 2-Mild CIWA-Ar Total Score: 2 - Admission Criteria OASAS Guidelines: Admission for Medically Managed Detox: Requires at least one of the followin. CIWA greater than 12 2. Seizures within the past 24 hours 3. Delirium tremens within the past 24 hours 4. Hallucinations within the past 24 hours 5. Acute intervention needed for co occurring medical disorder 6. Acute intervention needed for co occurring psychiatric disorder 7. Severe withdrawal that cannot be handled at a lower level of care (continued vomiting, continued diarrhea, abnormal vital signs) requiring intravenous medication and/or fluids 8. Admission [facility] Chief Complaint: SEEKING REHAB FOR COCAINE DEPENDENCE Allergies/Adverse Reactions: Allergies Allergy/AdvReac Type Severity Reaction Status Date / Time No Known Allergies Allergy Verified 01/01/19 20:28 History of Present Illness: 48 Y.O. MALE WITH COCAINE DEPENDENCE AND XANAX ABUSE HERE FOR REHAB. CLIENT IS ON MMTP 100MG AT [facility] TODAY PENDING VERIFICATION. CLIENT DAILY USE OF COCAINE. AND XANAX ONCE A WEEK .LAST USE 2 DAYS AGO 2MG. TABLET. PRESENTLY DENIES ANY WITHDRAWAL SX'S. SELF REFERRED. DENIES ANY CLEAN TIME IN THE PAST YEAR. DENIES HX/O SEIZURES/ DRUG OVERDOSE/ BLACK OUTS. DOMICILED, UNEMPLOYED- HRA, DENIES LEGALS Exam Limitations: Language Barrier (ICELANDIC SPEAKING ABLE TO MAKE NEEDS KNOWN IN [place]) - Ebola screening Have you traveled outside of the country in the last 21 days: No Have you had contact with anyone from an Ebola affected area: No Have you been sick,other than usual withdrawal symptoms: No Do you have a fever: No - Review of Systems Constitutional: Malaise, Changes in sleep EENT: reports: No Symptoms Reported Respiratory: reports: No Symptoms reported Cardiac: reports: No Symptoms Reported GI: reports: No Symptoms Reported : reports: No Symptoms Reported Musculoskeletal: reports: No Symptoms Reported Integumentary: reports: No Symptoms Reported Neuro: reports: Headache Endocrine: reports: No Symptoms Reported Hematology: reports: No Symptoms Reported Psychiatric: reports: Orientated x3, Agitated (IRRITABLE DUE TO WAITING LONG PERIOD), Anxious, Depressed (DENIES SI) Other Systems: Reviewed and Negative Patient History - Patient Medical History Hx Anemia: No Hx Asthma: No Hx Chronic Obstructive Pulmonary Disease (COPD): No Hx Cancer: No Hx Cardiac Disorders: No Hx Congestive Heart Failure: No Hx Hypertension: No Hx Hypercholesterolemia: No Hx Pacemaker: No HX Cerebrovascular Accident: No Hx Seizures: No Hx Dementia: No Hx Diabetes: No Hx Gastrointestinal Disorders: No Hx Liver Disease: No Hx Genitourinary Disorders: No Hx Sexually Transmitted Disorders: No Hx Renal Disease (ESRD): No Hx Thyroid Disease: No Hx Human Immunodeficiency Virus (HIV): Yes Hx Hepatitis C: Yes (TX'ED) Hx Depression: Yes Hx Suicide Attempt: No Hx Bipolar Disorder: No Hx Schizophrenia: No - Patient Surgical History Past Surgical History: No Hx Neurologic Surgery: No Hx Cataract Extraction: No Hx Cardiac Surgery: No Hx Lung Surgery: No Hx Breast Surgery: No Hx Breast Biopsy: No Hx Abdominal Surgery: No Hx Appendectomy: No Hx Cholecystectomy: No Hx Genitourinary Surgery: No Hx Section: No Hx Orthopedic Surgery: No Anesthesia Reaction: No - PPD History Previous Implant?: Yes Documented Results: Negative w/proof Implanted On Prior [facility] Admission?: Yes Date: 11/12/17 Results: 0 mm PPD to be Administered?: No - Smoking Cessation Smoking history: Current every day smoker Have you smoked in the past 12 months: Yes Aproximately how many cigarettes per day: 20 Cigars Per Day: 0 Hx Chewing Tobacco Use: No Initiated information on smoking cessation: Yes 'Breaking Loose' booklet given: 01/01/19 - Substance & Tx. History Hx Alcohol Use: No Hx Substance Use: Yes Substance Use Type: Cocaine, Heroin, Tranquilizers (XANAX ONCE A WEEK) Hx Substance Use Treatment: Yes ([facility]) - Substances abused Cocaine Substance route: Injection Frequency: Daily Amount used: 150$ Age of first use: 16 Date of last use: 12/31/18 Alprazolam (Xanax) Substance route: Oral Frequency: 1-3 times last 30 days Amount used: 2 mgs Age of first use: 25 Date of last use: 12/30/18 Heroin Substance route: Injection Frequency: 1-2 times per week Amount used: 3 to 4 bags Age of first use: 18 Date of last use: 12/31/18 Family Disease History - Family Disease History Family Disease History: Other: Father (Used ETOH in past, Not currently.), Brother (Drugs.) Admission Physical Exam [facility] - Vital Signs Vital Signs: Vital Signs - 24 hr 01/01/19 20:33 Temperature 98.1 F Pulse Rate 48 L Respiratory 16 Rate Blood Pressure 139/76 - Physical General Appearance: Yes: Irritable HEENTM: Yes: EOMI, Normocephalic, Normal Voice, JUNIOR, Pharynx Normal, Other ( MISSING TEETH) Respiratory: Yes: Chest Non-Tender, Lungs Clear, Normal Breath Sounds, No Respiratory Distress, No Accessory Muscle Use Neck: Yes: No masses,lesions,Nodules, Supple, Trachea in good position Breast: Yes: Breast Exam Deferred Cardiology: Yes: Regular Rhythm, Regular Rate, S1, S2 Abdominal: Yes: Non Tender, Soft, Increased Bowel Sounds Genitourinary: Yes: Within Normal Limits Back: Yes: Normal Inspection Musculoskeletal: Yes: full range of Motion, Gait Steady Extremities: Yes: Normal Capillary Refill, Normal Range of Motion, Non-Tender Neurological: Yes: Fully Oriented, Alert, Motor Strength 5/5 Integumentary: Yes: Dry, Warm, Track Wilkinson (ARMS AND HANDS), Other (ABCESS TO R AC NON TENDER NO REDNESS OR WAMRNTH NOTED NEG DRAINAGE) Lymphatic: Yes: Within Normal Limits - Diagnostic (1) Cocaine dependence, uncomplicated Current Visit: Yes Status: Acute (2) HIV (human immunodeficiency virus infection) Current Visit: Yes Status: Chronic Qualifiers: HIV symptom status: unspecified Qualified Code(s): B20 - Human immunodeficiency virus [HIV] disease (3) Methadone maintenance therapy patient Current Visit: Yes Status: Chronic (4) Nicotine dependence Current Visit: Yes Status: Chronic Qualifiers: Nicotine product type: cigarettes Substance use status: uncomplicated Qualified Code(s): F17.210 - Nicotine dependence, cigarettes, uncomplicated (5) Sedative, hypnotic or anxiolytic dependence, uncomplicated Current Visit: Yes Status: Acute (6) Substance induced mood disorder Current Visit: Yes Status: Suspected (7) Uses Israeli as primary spoken language Current Visit: Yes Status: Chronic (8) IVDU (intravenous drug user) Current Visit: Yes Status: Acute Cleared for Admission [facility] - Detox or Rehab Claeared for Rehab Admission: No Breathalyzer - Breathalyzer Breathalyzer: 0 Urine Drug Screen - Test Device Lot number: [id number] Expiration date: 10/13/20 - Control Is test valid?: Yes - Results Drug screen NEGATIVE: No Urine drug screen results: SAMUEL-Cocaine, MET-Methamphetamine, FEN-Fentanyl, MOP- Opiates, OXY-Oxycodone, MTD-Methadone, BZO-Benzodiazepines Inpatient Rehab Admission - Rehab Decision to Admit Inpatient rehab admission?: Yes - Initial Determination Are CD services needed?: Yes Free of communicable disease: No Not in need of hospitalization: Yes - Rehab Admission Criteria Previous failed treatment: Yes Poor recovery environment: Yes Comorbidities: Yes Lacks judgement: No Patient is meeting Inpatient Rehab admission criteria:: Yes
[2019-01-01] MEDS ORDERED: hydrOXYzine PAMOATE 50 MG CAPSULE (FP) PO PRN (22:08)
[2019-01-01] MEDS ORDERED: MENTHOL/PHENOL 1 EACH UD MM PRN (22:08)
[2019-01-01] MEDS ORDERED: ACETAMINOPHEN 325 MG TABLET (FP) PO PRN (22:08)
[2019-01-01] MEDS ORDERED: P-EPHED 60MG/TRIPROLIDI 2.5MG TABLET PO PRN (22:08)
[2019-01-01] MEDS ORDERED: LOPERAMIDE HCL 2 MG CAPSULE PO PRN (22:08)
[2019-01-01] MEDS ORDERED: MAGNESIUM HYDROX 2400MG/30ML ORAL SUSPENSION 30 ML CUP PO PRN (22:08)
[2019-01-01] MEDS ORDERED: MAGNESIUM CITRATE 300 ML BOTTLE PO PRN (22:08)
[2019-01-01] MEDS ORDERED: IBUPROFEN 400 MG TABLET (FP) PO PRN (22:08)
[2019-01-01] MEDS ORDERED: guaiFENesin 200 MG/10 ML 10 ML UNIT-DOSE CUPS PO PRN (22:08)
--- NOTE | 2019-01-02 09:22 | PN ---
[facility] Progress Note Note: Psychiatric nurse practitioner note: Bearing Press Machine Operator attempted to speak to patient but patient refused. Stated to automotive service writer, " Not right now i feel sick. We can talk later but not now." Nursing staff informed.
[2019-01-02] MEDS ORDERED: METHADONE HCL 10 MG TABLET PO ONE (10:03)
[2019-01-02] MEDS ORDERED: METHADONE 80 MG, METHADONE 20 MG PO ONE (10:10)
[2019-01-02] MEDS ORDERED: METHADONE HCL 40 MG DISPERSABLE TABLET ONE (10:53)
[2019-01-02] MEDS ORDERED: METHADONE HCL 10 MG TABLET ONE (10:53)
[2019-01-02] MEDS: NICOTINE 21 MG/24 HOURS TOPICAL PATCH TD SCH (10:54)
[2019-01-02] MEDS: PRENATAL VITAMINS W/ FOLIC ACID TABLET (FP) PO SCH (10:54)
[2019-01-02 12:11] LABS: HEMATOCRIT 38.5 % (35.4-49); HEMOGLOBIN 12.6 GM/dL (11.7-16.9); MCH 28.5 pg (25.7-33.7); MCHC 32.6 g/dl (32.0-35.9); MEAN CELL VOLUME 87.5 fl (80-96); MEAN PLT VOLUME 11.7 fl (7.5-11.1); PLATELET COUNT 192 K/MM3 (134-434); RBC 4.41 M/mm3 (4.00-5.60); RDW 14.1 % (11.9-15.9); WHITE BLOOD COUNT 5.2 K/mm3 (4.0-10.0)
[2019-01-02 12:35] LABS: ALBUMIN 3.4 g/dl (3.4-5.0); BILIRUBIN,TOTAL 0.6 mg/dL (0.2-1); BLOOD UREA NITROGEN 17.5 mg/dL (7-18); CALCIUM 8.9 mg/dL (8.5-10.1); CREATININE 1.3 mg/dL (0.55-1.3); POTASSIUM 4.5 mmol/L (3.5-5.1); TOT PROT 8.1 g/dl (6.4-8.2)
[2019-01-02] MEDS: EMTRICITAB/RILPIVIRI/TENOF ALA (ODEFSEY) TABLET PO SCH (12:49)
[2019-01-02] MEDS: THIAMINE HCL 100 MG TABLET (FP) PO SCH (21:37)
[2019-01-02] MEDS: MELATONIN 5 MG TABLETS PO PRN (21:37)
[2019-01-03] MEDS ORDERED: METHADONE HCL 10 MG TABLET ONE (04:18)
[2019-01-03] MEDS ORDERED: METHADONE HCL 40 MG DISPERSABLE TABLET ONE (04:19)
[2019-01-03] MEDS ORDERED: METHADONE HCL 10 MG TABLET PO SCH (06:00)
[2019-01-03] MEDS: METHADONE 80 MG, METHADONE 20 MG PO SCH (06:20)
[2019-01-03] MEDS: PRENATAL VITAMINS W/ FOLIC ACID TABLET (FP) PO SCH (10:25)
[2019-01-03] MEDS: EMTRICITAB/RILPIVIRI/TENOF ALA (ODEFSEY) TABLET PO SCH (10:25)
[2019-01-03] MEDS: NICOTINE 21 MG/24 HOURS TOPICAL PATCH TD SCH (10:25)
--- NOTE | 2019-01-03 12:26 | PN ---
[facility] Progress Note Note: C/O PAIN AND SWELLING TO RIGHT INNER ELBOW FROM IVD INJ. 6 DAYS AGO. Vital Signs - 24 hr 01/03/19 01/03/19 01/03/19 00:30 03:30 07:08 Temperature 98.2 F Pulse Rate 51 L Respiratory 18 18 18 Rate Blood Pressure 122/64 Laboratory Tests 01/02/19 01/02/19 01/02/19 08:14 08:14 08:14 WBC 5.2 RBC 4.41 Hgb 12.6 Hct 38.5 MCV 87.5 MCH 28.5 MCHC 32.6 RDW 14.1 Plt Count 192 MPV 11.7 H Sodium 142 Potassium 4.5 Chloride 105 Carbon Dioxide 31 Anion Gap 6 L BUN 17.5 Creatinine 1.3 Est GFR (CKD-EPI)AfAm 74.78 Est GFR (CKD-EPI)NonAf 64.52 Random Glucose 94 Calcium 8.9 Total Bilirubin 0.6 AST 22 ALT 21 Alkaline Phosphatase 83 Total Protein 8.1 Albumin 3.4 RPR Titer Nonreactive EXAM: EXTREMITY:RIGHT INNER ELBOW WITH FLUID-LIKE SWELLING, MINIMAL REDNESS, SLIGHT PAIN ON PALP. BOTH ELBOWS WITH AREAS OF OLD SCARED/HARDENED IVD INJ. SITES A/P IVD USE CELLULITIS/ABSCESS BACTRIM DS 1 TAB PO BID X 7 DAYS BACITRACIN OINTMENT APPLY DIRECTED.
[2019-01-03] MEDS ORDERED: SULFAMETHOXAZOLE/TRIMETHOPRIM 800MG/160MG D.S. TABLET PO ONE (12:45)
[2019-01-03] MEDS: BACITRACIN 15 GM TUBE TOPICAL OINTMENT TP ONE (14:13)
[2019-01-03] MEDS: MELATONIN 5 MG TABLETS PO PRN (21:39)
[2019-01-03] MEDS: THIAMINE HCL 100 MG TABLET (FP) PO SCH (21:39)
[2019-01-03] MEDS: SULFAMETHOXAZOLE/TRIMETHOPRIM 800MG/160MG D.S. TABLET PO SCH (21:39)
[2019-01-03] MEDS: BACITRACIN 15 GM TUBE TOPICAL OINTMENT TP SCH (21:46)
[2019-01-04] MEDS ORDERED: METHADONE HCL 40 MG DISPERSABLE TABLET ONE (04:15)
[2019-01-04] MEDS ORDERED: METHADONE HCL 10 MG TABLET ONE (04:15)
[2019-01-04] MEDS: METHADONE 80 MG, METHADONE 20 MG PO SCH (06:08)
[2019-01-04] MEDS: BACITRACIN 15 GM TUBE TOPICAL OINTMENT TP SCH ×2 (10:42→21:34)
[2019-01-04] MEDS: PRENATAL VITAMINS W/ FOLIC ACID TABLET (FP) PO SCH (10:43)
[2019-01-04] MEDS: SULFAMETHOXAZOLE/TRIMETHOPRIM 800MG/160MG D.S. TABLET PO SCH ×2 (10:43→21:33)
[2019-01-04] MEDS: EMTRICITAB/RILPIVIRI/TENOF ALA (ODEFSEY) TABLET PO SCH (10:43)
[2019-01-04] MEDS: NICOTINE 21 MG/24 HOURS TOPICAL PATCH TD SCH (10:43)
[2019-01-04] MEDS: MELATONIN 5 MG TABLETS PO PRN (21:33)
[2019-01-04] MEDS: THIAMINE HCL 100 MG TABLET (FP) PO SCH (21:33)
[2019-01-05] MEDS ORDERED: METHADONE HCL 40 MG DISPERSABLE TABLET ONE (06:00)
[2019-01-05] MEDS ORDERED: METHADONE HCL 10 MG TABLET ONE (06:00)
[2019-01-05] MEDS: METHADONE 80 MG, METHADONE 20 MG PO SCH (06:22)
[2019-01-05] MEDS: BACITRACIN 15 GM TUBE TOPICAL OINTMENT TP SCH ×2 (10:37→23:10)
[2019-01-05] MEDS: NICOTINE 21 MG/24 HOURS TOPICAL PATCH TD SCH (10:38)
[2019-01-05] MEDS: SULFAMETHOXAZOLE/TRIMETHOPRIM 800MG/160MG D.S. TABLET PO SCH ×2 (10:38→21:53)
[2019-01-05] MEDS: PRENATAL VITAMINS W/ FOLIC ACID TABLET (FP) PO SCH (10:38)
[2019-01-05] MEDS: EMTRICITAB/RILPIVIRI/TENOF ALA (ODEFSEY) TABLET PO SCH (11:12)
[2019-01-05] MEDS: MELATONIN 5 MG TABLETS PO PRN (21:53)
[2019-01-05] MEDS: THIAMINE HCL 100 MG TABLET (FP) PO SCH (21:53)
[2019-01-05] MEDS: MAG HYDROX/AL HYDROX/SIMETH 30 ML UNIT-DOSE CUP PO PRN (23:03)
[2019-01-06] MEDS ORDERED: METHADONE HCL 10 MG TABLET ONE (05:52)
[2019-01-06] MEDS ORDERED: METHADONE HCL 40 MG DISPERSABLE TABLET ONE (05:53)
[2019-01-06] MEDS: METHADONE 80 MG, METHADONE 20 MG PO SCH (06:08)
[2019-01-06] MEDS: SULFAMETHOXAZOLE/TRIMETHOPRIM 800MG/160MG D.S. TABLET PO SCH ×2 (10:04→23:33)
[2019-01-06] MEDS: EMTRICITAB/RILPIVIRI/TENOF ALA (ODEFSEY) TABLET PO SCH (10:04)
[2019-01-06] MEDS: PRENATAL VITAMINS W/ FOLIC ACID TABLET (FP) PO SCH (10:04)
[2019-01-06] MEDS: NICOTINE 21 MG/24 HOURS TOPICAL PATCH TD SCH (10:04)
[2019-01-06] MEDS: BACITRACIN 15 GM TUBE TOPICAL OINTMENT TP SCH ×2 (10:05→22:06)
[2019-01-06] MEDS: MAG HYDROX/AL HYDROX/SIMETH 30 ML UNIT-DOSE CUP PO PRN (22:02)
[2019-01-06] MEDS: BACITRACIN 15 GM TUBE TOPICAL OINTMENT TP ONE (22:05)
[2019-01-06] MEDS: THIAMINE HCL 100 MG TABLET (FP) PO SCH (22:06)
[2019-01-06] MEDS: MELATONIN 5 MG TABLETS PO PRN (22:06)
[2019-01-07] MEDS ORDERED: METHADONE HCL 40 MG DISPERSABLE TABLET ONE (05:58)
[2019-01-07] MEDS ORDERED: METHADONE HCL 10 MG TABLET ONE (05:58)
[2019-01-07] MEDS: METHADONE 80 MG, METHADONE 20 MG PO SCH (06:04)
[2019-01-07] MEDS: MAG HYDROX/AL HYDROX/SIMETH 30 ML UNIT-DOSE CUP PO PRN (07:59)
[2019-01-07] MEDS: PRENATAL VITAMINS W/ FOLIC ACID TABLET (FP) PO SCH (10:00)
[2019-01-07] MEDS: SULFAMETHOXAZOLE/TRIMETHOPRIM 800MG/160MG D.S. TABLET PO SCH ×2 (10:01→21:28)
[2019-01-07] MEDS: NICOTINE 21 MG/24 HOURS TOPICAL PATCH TD SCH (10:01)
[2019-01-07] MEDS: EMTRICITAB/RILPIVIRI/TENOF ALA (ODEFSEY) TABLET PO SCH (10:01)
[2019-01-07] MEDS: BACITRACIN 15 GM TUBE TOPICAL OINTMENT TP SCH ×2 (10:01→21:28)
[2019-01-07] MEDS: THIAMINE HCL 100 MG TABLET (FP) PO SCH (21:28)
[2019-01-07] MEDS: MELATONIN 5 MG TABLETS PO PRN (21:29)
[2019-01-08] MEDS ORDERED: METHADONE HCL 10 MG TABLET ONE (05:45)
[2019-01-08] MEDS ORDERED: METHADONE HCL 40 MG DISPERSABLE TABLET ONE (05:46)
[2019-01-08] MEDS: METHADONE 80 MG, METHADONE 20 MG PO SCH (05:59)
[2019-01-08] MEDS: PRENATAL VITAMINS W/ FOLIC ACID TABLET (FP) PO SCH (10:08)
[2019-01-08] MEDS: EMTRICITAB/RILPIVIRI/TENOF ALA (ODEFSEY) TABLET PO SCH (10:08)
[2019-01-08] MEDS: NICOTINE 21 MG/24 HOURS TOPICAL PATCH TD SCH (10:08)
[2019-01-08] MEDS: SULFAMETHOXAZOLE/TRIMETHOPRIM 800MG/160MG D.S. TABLET PO SCH ×2 (10:08→21:22)
[2019-01-08] MEDS: BACITRACIN 15 GM TUBE TOPICAL OINTMENT TP SCH (10:08)
[2019-01-08] MEDS: THIAMINE HCL 100 MG TABLET (FP) PO SCH (21:22)
[2019-01-08] MEDS: MELATONIN 5 MG TABLETS PO PRN (21:23)
[2019-01-09] MEDS: MAG HYDROX/AL HYDROX/SIMETH 30 ML UNIT-DOSE CUP PO PRN ×3 (00:29→21:41)
[2019-01-09] MEDS ORDERED: METHADONE HCL 10 MG TABLET ONE (03:57)
[2019-01-09] MEDS ORDERED: METHADONE HCL 40 MG DISPERSABLE TABLET ONE (03:58)
[2019-01-09] MEDS: BACITRACIN 15 GM TUBE TOPICAL OINTMENT TP SCH ×2 (06:48→09:17)
[2019-01-09] MEDS ORDERED: METHADONE HCL 10 MG TABLET PO SCH (08:45)
[2019-01-09] MEDS: METHADONE 80 MG, METHADONE 20 MG PO SCH (09:14)
[2019-01-09] MEDS: SULFAMETHOXAZOLE/TRIMETHOPRIM 800MG/160MG D.S. TABLET PO SCH ×2 (09:15→21:39)
[2019-01-09] MEDS: PRENATAL VITAMINS W/ FOLIC ACID TABLET (FP) PO SCH (09:15)
[2019-01-09] MEDS: EMTRICITAB/RILPIVIRI/TENOF ALA (ODEFSEY) TABLET PO SCH (09:15)
[2019-01-09] MEDS: NICOTINE 21 MG/24 HOURS TOPICAL PATCH TD SCH (09:16)
[2019-01-09] MEDS: THIAMINE HCL 100 MG TABLET (FP) PO SCH (21:39)
[2019-01-09] MEDS: MELATONIN 5 MG TABLETS PO PRN (21:39)
[2019-01-09] MEDS: NICOTINE POLACRILEX 2 MG GUM BC PRN (21:40)
[2019-01-10] MEDS: BACITRACIN 15 GM TUBE TOPICAL OINTMENT TP SCH ×2 (00:17→10:14)
[2019-01-10] MEDS ORDERED: METHADONE HCL 10 MG TABLET ONE (05:54)
[2019-01-10] MEDS ORDERED: METHADONE HCL 40 MG DISPERSABLE TABLET ONE (05:55)
[2019-01-10] MEDS: METHADONE 80 MG, METHADONE 20 MG PO SCH (05:56)
[2019-01-10] MEDS: NICOTINE 21 MG/24 HOURS TOPICAL PATCH TD SCH (10:13)
[2019-01-10] MEDS: SULFAMETHOXAZOLE/TRIMETHOPRIM 800MG/160MG D.S. TABLET PO SCH ×2 (10:13→21:32)
[2019-01-10] MEDS: PRENATAL VITAMINS W/ FOLIC ACID TABLET (FP) PO SCH (10:13)
[2019-01-10] MEDS: EMTRICITAB/RILPIVIRI/TENOF ALA (ODEFSEY) TABLET PO SCH (10:14)
[2019-01-10] MEDS: MAG HYDROX/AL HYDROX/SIMETH 30 ML UNIT-DOSE CUP PO PRN (12:26)
[2019-01-10] MEDS: MELATONIN 5 MG TABLETS PO PRN (21:33)
[2019-01-10] MEDS: NICOTINE POLACRILEX 2 MG GUM BC PRN (21:33)
[2019-01-10] MEDS: THIAMINE HCL 100 MG TABLET (FP) PO SCH (21:33)
[2019-01-11] MEDS: MAG HYDROX/AL HYDROX/SIMETH 30 ML UNIT-DOSE CUP PO PRN ×3 (00:25→22:13)
[2019-01-11] MEDS ORDERED: METHADONE HCL 40 MG DISPERSABLE TABLET ONE (05:54)
[2019-01-11] MEDS ORDERED: METHADONE HCL 10 MG TABLET ONE (05:54)
[2019-01-11] MEDS: METHADONE 80 MG, METHADONE 20 MG PO SCH (05:55)
[2019-01-11] MEDS: PRENATAL VITAMINS W/ FOLIC ACID TABLET (FP) PO SCH (10:34)
[2019-01-11] MEDS: NICOTINE 21 MG/24 HOURS TOPICAL PATCH TD SCH (10:34)
[2019-01-11] MEDS: SULFAMETHOXAZOLE/TRIMETHOPRIM 800MG/160MG D.S. TABLET PO SCH ×2 (10:34→21:24)
[2019-01-11] MEDS: EMTRICITAB/RILPIVIRI/TENOF ALA (ODEFSEY) TABLET PO SCH (10:35)
[2019-01-11] MEDS: THIAMINE HCL 100 MG TABLET (FP) PO SCH (21:24)
[2019-01-11] MEDS: MELATONIN 5 MG TABLETS PO PRN (21:24)
[2019-01-12] MEDS ORDERED: METHADONE HCL 40 MG DISPERSABLE TABLET ONE (06:00)
[2019-01-12] MEDS ORDERED: METHADONE HCL 10 MG TABLET ONE (06:00)
[2019-01-12] MEDS: METHADONE 80 MG, METHADONE 20 MG PO SCH (06:13)
[2019-01-12] MEDS: PRENATAL VITAMINS W/ FOLIC ACID TABLET (FP) PO SCH (10:37)
[2019-01-12] MEDS: NICOTINE 21 MG/24 HOURS TOPICAL PATCH TD SCH (10:37)
[2019-01-12] MEDS: SULFAMETHOXAZOLE/TRIMETHOPRIM 800MG/160MG D.S. TABLET PO SCH ×2 (10:37→21:28)
[2019-01-12] MEDS: EMTRICITAB/RILPIVIRI/TENOF ALA (ODEFSEY) TABLET PO SCH (10:38)
[2019-01-12] MEDS: MAG HYDROX/AL HYDROX/SIMETH 30 ML UNIT-DOSE CUP PO PRN ×2 (10:39→16:42)
[2019-01-12] MEDS: NICOTINE POLACRILEX 2 MG GUM BC PRN (21:28)
[2019-01-12] MEDS: MELATONIN 5 MG TABLETS PO PRN (21:28)
[2019-01-12] MEDS: THIAMINE HCL 100 MG TABLET (FP) PO SCH (21:28)
[2019-01-13] MEDS ORDERED: METHADONE HCL 10 MG TABLET ONE (04:26)
[2019-01-13] MEDS ORDERED: METHADONE HCL 40 MG DISPERSABLE TABLET ONE (04:26)
[2019-01-13] MEDS: METHADONE 80 MG, METHADONE 20 MG PO SCH (06:16)
[2019-01-13] MEDS: EMTRICITAB/RILPIVIRI/TENOF ALA (ODEFSEY) TABLET PO SCH (09:58)
[2019-01-13] MEDS: NICOTINE 21 MG/24 HOURS TOPICAL PATCH TD SCH (09:58)
[2019-01-13] MEDS: SULFAMETHOXAZOLE/TRIMETHOPRIM 800MG/160MG D.S. TABLET PO SCH ×2 (09:58→21:21)
[2019-01-13] MEDS: PRENATAL VITAMINS W/ FOLIC ACID TABLET (FP) PO SCH (09:58)
[2019-01-13] MEDS: THIAMINE HCL 100 MG TABLET (FP) PO SCH (21:21)
[2019-01-13] MEDS: MELATONIN 5 MG TABLETS PO PRN (21:21)
[2019-01-14] MEDS ORDERED: METHADONE HCL 40 MG DISPERSABLE TABLET ONE (06:11)
[2019-01-14] MEDS ORDERED: METHADONE HCL 10 MG TABLET ONE (06:11)
[2019-01-14] MEDS: METHADONE 80 MG, METHADONE 20 MG PO SCH (06:11)
[2019-01-14] MEDS: PRENATAL VITAMINS W/ FOLIC ACID TABLET (FP) PO SCH (10:17)
[2019-01-14] MEDS: SULFAMETHOXAZOLE/TRIMETHOPRIM 800MG/160MG D.S. TABLET PO SCH ×2 (10:18→21:32)
[2019-01-14] MEDS: NICOTINE POLACRILEX 2 MG GUM BC PRN ×2 (10:18→21:32)
[2019-01-14] MEDS: EMTRICITAB/RILPIVIRI/TENOF ALA (ODEFSEY) TABLET PO SCH (10:18)
[2019-01-14] MEDS: NICOTINE 21 MG/24 HOURS TOPICAL PATCH TD SCH (10:18)
[2019-01-14] MEDS: THIAMINE HCL 100 MG TABLET (FP) PO SCH (21:32)
[2019-01-14] MEDS: MELATONIN 5 MG TABLETS PO PRN (21:32)
[2019-01-14] MEDS: MAG HYDROX/AL HYDROX/SIMETH 30 ML UNIT-DOSE CUP PO PRN (22:33)
[2019-01-15] MEDS: MAG HYDROX/AL HYDROX/SIMETH 30 ML UNIT-DOSE CUP PO PRN (03:36)
[2019-01-15] MEDS ORDERED: METHADONE HCL 10 MG TABLET ONE (05:56)
[2019-01-15] MEDS ORDERED: METHADONE HCL 40 MG DISPERSABLE TABLET ONE (05:56)
[2019-01-15] MEDS: METHADONE 80 MG, METHADONE 20 MG PO SCH (06:01)
[2019-01-15] MEDS: NICOTINE 21 MG/24 HOURS TOPICAL PATCH TD SCH (10:35)
[2019-01-15] MEDS: SULFAMETHOXAZOLE/TRIMETHOPRIM 800MG/160MG D.S. TABLET PO SCH ×2 (10:35→21:34)
[2019-01-15] MEDS: PRENATAL VITAMINS W/ FOLIC ACID TABLET (FP) PO SCH (10:35)
[2019-01-15] MEDS: EMTRICITAB/RILPIVIRI/TENOF ALA (ODEFSEY) TABLET PO SCH (10:35)
[2019-01-15] MEDS: MELATONIN 5 MG TABLETS PO PRN (21:34)
[2019-01-15] MEDS: THIAMINE HCL 100 MG TABLET (FP) PO SCH (21:35)
[2019-01-15] MEDS: NICOTINE POLACRILEX 2 MG GUM BC PRN (21:35)
[2019-01-16] MEDS ORDERED: METHADONE HCL 10 MG TABLET ONE (05:34)
[2019-01-16] MEDS ORDERED: METHADONE HCL 40 MG DISPERSABLE TABLET ONE (05:35)
[2019-01-16] MEDS ORDERED: METHADONE 80 MG, METHADONE 20 MG PO SCH (06:00)
[2019-01-16 07:41] VITALS: BP 135/69; PULSE 54; TEMP 97.7
--- NOTE | 2019-01-16 09:44 | DS ---
[facility] Rehab Discharge Summary - [facility] Rehab Discharge Summary Admission Date: 01/01/19 Discharge Date: 01/16/19 - History Present History: Cocaine dependence, MMTP, Opioid dependence, Sedative dependence Additional Comments: Pt is a 48 y/o male admitted to rehab with a hx cocaine,benzo and opioid use disorder. Pt is currently on Methadone maintenance with [facility]-MMTP on Methadone 100 mg po daily. However, pt continues to use heroin on/off. Pt is also currently with [facility] for primary care management. Pertinent Past History: HIV+ Hep C Chronic I.V drug inj. site scaring on elbows Bipolar disorder - Discharge Physical Exam Vital Signs: General:Alert o x 3, NAD, Denies s/h/i Heent:Normocephalic,eomi,hearing grossly normal Extremities:Full ROM all limbs,no edema. Left elbow sx resolved. Vital Signs Temperature 97.7 F 01/16/19 07:39 Pulse Rate 54 L 01/16/19 07:39 Respiratory Rate 18 01/16/19 07:39 Blood Pressure 135/69 01/16/19 07:39 O2 Sat by Pulse Oximetry (%) Pertinent Admission Physical Exam Findings: Laboratory Tests 01/02/19 01/02/19 01/02/19 08:14 08:14 08:14 WBC 5.2 RBC 4.41 Hgb 12.6 Hct 38.5 MCV 87.5 MCH 28.5 MCHC 32.6 RDW 14.1 Plt Count 192 MPV 11.7 H Sodium 142 Potassium 4.5 Chloride 105 Carbon Dioxide 31 Anion Gap 6 L BUN 17.5 Creatinine 1.3 Est GFR (CKD-EPI)AfAm 74.78 Est GFR (CKD-EPI)NonAf 64.52 Random Glucose 94 Calcium 8.9 Total Bilirubin 0.6 AST 22 ALT 21 Alkaline Phosphatase 83 Total Protein 8.1 Albumin 3.4 Urine Color Urine Appearance Urine pH Ur Specific [place] Urine Protein Urine Glucose (UA) Urine Ketones Urine Blood Urine Nitrite Urine Bilirubin Urine Urobilinogen Ur Leukocyte Esterase Urine WBC (Auto) Urine RBC (Auto) Urine Casts (Auto) U Pathogenic Cast Auto U Epithel Cells (Auto) U Sm Round Cell (Auto) Urine Crystals (Auto) Urine Bacteria (Auto) Urine Yeast (Auto) RPR Titer Nonreactive 01/02/19 14:35 WBC RBC Hgb Hct MCV MCH MCHC RDW Plt Count MPV Sodium Potassium Chloride Carbon Dioxide Anion Gap BUN Creatinine Est GFR (CKD-EPI)AfAm Est GFR (CKD-EPI)NonAf Random Glucose Calcium Total Bilirubin AST ALT Alkaline Phosphatase Total Protein Albumin Urine Color Cancelled Urine Appearance Cancelled Urine pH Cancelled Ur Specific [place] Cancelled Urine Protein Cancelled Urine Glucose (UA) Cancelled Urine Ketones Cancelled Urine Blood Cancelled Urine Nitrite Cancelled Urine Bilirubin Cancelled Urine Urobilinogen Cancelled Ur Leukocyte Esterase Cancelled Urine WBC (Auto) Cancelled Urine RBC (Auto) Cancelled Urine Casts (Auto) Cancelled U Pathogenic Cast Auto Cancelled U Epithel Cells (Auto) Cancelled U Sm Round Cell (Auto) Cancelled Urine Crystals (Auto) Cancelled Urine Bacteria (Auto) Cancelled Urine Yeast (Auto) Cancelled RPR Titer Old and new i.v inj. site reyes/scaring on both inner elbows, R > L elbow. cellilitis and abscess right inner elbow. Treatment completed with bactrim Ds on 01/15/19. - Treatment Discharge Condition: Discharge condition good Hospital Course: Rehabilitated safely and responded well to treatment - Medication Discharge Medications: Ambulatory Orders Lurasidone HCl [Latuda -] 20 mg PO DAILY #30 tablet 11/23/17 Sertraline HCl [Zoloft] 100 mg PO DAILY #30 tablet 11/23/17 Emtricitab/Rilpiviri/Tenof Ala [Odefsey Tablet] 1 each PO DAILY 03/31/18 Zolpidem Tartrate [Ambien] 10 mg PO HS 08/17/18 - Medication-Assisted Treatment (MAT) Medication-Assisted Treatment (MAT): No - Discharge Instructions Diet, activity, other medical instructions: Diet:Regular Activity: oob, ad jacob Other medical instructions:Follow up with primary care provider at [facility] @ [address] [place], [place] for medical management of comormid conditions. follow up with [facility] for Methadone maintenance. - Diagnosis (1) IVDU (intravenous drug user) Current Visit: Yes Status: Chronic (2) HIV (human immunodeficiency virus infection) Current Visit: Yes Status: Chronic Qualifiers: HIV symptom status: unspecified Qualified Code(s): B20 - Human immunodeficiency virus [HIV] disease (3) Methadone maintenance therapy patient Current Visit: Yes Status: Chronic (4) Nicotine dependence Current Visit: Yes Status: Chronic Qualifiers: Nicotine product type: cigarettes Substance use status: uncomplicated Qualified Code(s): F17.210 - Nicotine dependence, cigarettes, uncomplicated (5) Cocaine dependence Current Visit: Yes Status: Chronic Qualifiers: Substance use status: uncomplicated Qualified Code(s): F14.20 - Cocaine dependence, uncomplicated (6) Cellulitis of elbow Current Visit: Yes Status: Acute (7) Abscess of bursa, left elbow Current Visit: Yes Status: Acute (8) Sedative dependence Current Visit: Yes Status: Chronic (9) Hepatitis C Current Visit: Yes Status: Resolved Qualifiers: Viral hepatitis chronicity: chronic Hepatic coma status: without hepatic coma Qualified Code(s): B18.2 - Chronic viral hepatitis C - Follow-up Referral Minutes to complete discharge: 25 - AMA Did Patient Leave Against Medical Advice: No
[2019-01-16] MEDS: PRENATAL VITAMINS W/ FOLIC ACID TABLET (FP) PO SCH (10:17)
[2019-01-16] MEDS: EMTRICITAB/RILPIVIRI/TENOF ALA (ODEFSEY) TABLET PO SCH (10:17)
[2019-01-16] MEDS: NICOTINE 21 MG/24 HOURS TOPICAL PATCH TD SCH (10:21)
== END 2019-01-16 10:30 | disposition home or self-care (01) | DRG 772 ==
LOC: YASAS 15:32 → Y5N 23:13
PROVIDERS: ADMIT Neuromusculoskeletal Medicine & OMM; ATTEND Neuromusculoskeletal Medicine & OMM
PROC: HZ42ZZZ Group Counseling for Substance Abuse Treatment, Cognitive-Behavioral (ICD-10-PCS; principal; 2019-01-01)
DX: F14.20 Cocaine dependence, uncomplicated (principal); F11.20 Opioid dependence, uncomplicated; F13.20 Sedative, hypnotic or anxiolytic dependence, uncomplicated; F17.210 Nicotine dependence, cigarettes, uncomplicated; F19.24 Other psychoactive substance dependence with psychoactive substance-induced mood disorder; B18.2 Chronic viral hepatitis C; Z21 Asymptomatic human immunodeficiency virus [HIV] infection status; L03.114 Cellulitis of left upper limb; L03.113 Cellulitis of right upper limb; L02.414 Cutaneous abscess of left upper limb; L02.413 Cutaneous abscess of right upper limb
CPT/HCPCS: 36415; 80053; 81003; 85027; 86593